=== PATIENT | male | born 1960 | race Caucasian/White ===

== ENCOUNTER 2018-09-04 13:07 | Emergency (ER) | payer OTHER ==
[2018-09-04 15:00] LABS: ADD MAN DIFF? NO
[2018-09-04] MEDS: KETOROLAC 30 MG INJ IV (15:02)
[2018-09-04 15:05] LABS: WHITE BLOOD COUNT 10.2 10^3/ul (4.8-10.8)
[2018-09-04 15:05] LABS: BASOPHILS % 0.4 % (0.0-2.0); EOSINOPHILS # 0.2 10^3/ul (0.0-0.5); EOSINOPHILS % 2.1 % (0.0-7.0); HEMATOCRIT 46.3 % (42.0-52.0); HEMOGLOBIN 15.1 g/dl (14.0-18.0); LYMPHOCYTES # 2.2 10^3/ul (0.8-2.9); LYMPHOCYTES % 21.9 % (15.0-51.0); MEAN CORPUSCULAR HEMOGLOBIN 29.8 pg (29.0-33.0); MEAN CORPUSCULAR HGB CONC 32.6 g/dl (32.0-37.0); MEAN CORPUSCULAR VOLUME 91.3 fl (82.0-101.0); MEAN PLATELET VOLUME 9.7 fl (7.4-10.4); MONOCYTES % 9.8 % (0.0-11.0); NEUTROPHIL # 6.7 10^3/ul (1.6-7.5); NEUTROPHILS % 65.5 % (39.0-77.0); PLATELET COUNT 201 10^3/UL (140-415); RED BLOOD COUNT 5.07 10^6/ul (4.70-6.10); RED CELL DISTRIBUTION WIDTH 12.7 % (11.5-14.5)
[2018-09-04 15:11] LABS: ADD UMIC NO; UR ASCORBIC ACID NEGATIVE (NEGATIVE); UR BILIRUBIN (Dip) NEGATIVE (NEGATIVE); UR BLOOD (Dip) NEGATIVE (NEGATIVE); UR CLARITY CLEAR (CLEAR); UR COLOR YELLOW (YELLOW); UR GLUCOSE (Dip) NEGATIVE (NEGATIVE); UR KETONES (Dip) NEGATIVE (NEGATIVE); UR LEUKOCYTE ESTERASE (Dip) NEGATIVE Leu/ul (NEGATIVE); UR NITRITE (Dip) NEGATIVE (NEGATIVE); UR SPECIFIC GRAVITY (Dip) 1.023 (1.003-1.030); UR TOTAL PROTEIN (Dip) NEGATIVE (NEGATIVE); UR UROBILINOGEN (Dip) NEGATIVE (NEGATIVE)
[2018-09-04 15:28] LABS: ALANINE AMINOTRANSFERASE 45 IU/L (13-69); ALBUMIN 4.7 g/dl (3.3-4.9); ALKALINE PHOSPHATASE 95 IU/L (42-121); ANION GAP 12 (5-13); ASPARTATE AMINO TRANSFERASE 37 IU/L (15-46); BILIRUBIN,INDIRECT 0.3 mg/dl (0-1.1); BILIRUBIN,TOTAL 0.3 mg/dl (0.2-1.3); BLOOD UREA NITROGEN 17 mg/dl (7-20); CALCIUM 9.6 mg/dl (8.4-10.2); CARBON DIOXIDE 26 mmol/L (21-31); CHLORIDE 103 mmol/L (97-110); CREATININE 0.77 mg/dl (0.61-1.24); Estimated GFR > 60 mL/min (>60); GLUCOSE 110 mg/dl (70-220); LIPASE 58 U/L (23-300); POTASSIUM 4.3 mmol/L (3.5-5.1); SODIUM 141 mmol/L (135-144); TOTAL PROTEIN 8.6 g/dl (6.1-8.1)
[2018-09-04 15:39] LABS: TROPONIN-I < 0.012 ng/ml (0.000-0.120)
== END 2018-09-04 16:26 | disposition home or self-care (01) ==
LOC: E/R 13:07
DX: R10.84 Generalized abdominal pain (principal)
CPT/HCPCS: 36415; 80053; 81003; 83690; 84484; 85025; 87400; 93005; 96374; 99284-25

== ENCOUNTER 2018-09-09 09:41 | Emergency (ER) | payer OTHER ==
[2018-09-09] MEDS: LIDOCAINE 1% (MDV) 10 ML INJ INJ (10:33)
[2018-09-09] MEDS: LIDOCAINE 1% (MDV) 20 ML INJ INJ (10:56)
== END 2018-09-09 11:24 | disposition home or self-care (01) ==
LOC: FTE 09:41
DX: K61.0 Anal abscess (principal)
CPT/HCPCS: 46050; 99282-25

== ENCOUNTER 2018-11-06 17:29 | Emergency (ER) | payer OTHER | END 2018-11-06 20:54 | disposition home or self-care (01) | LOC: FTE 17:29 | DX: K61.1 Rectal abscess (principal) | CPT/HCPCS: 99283; Z7502 ==

== ENCOUNTER 2018-11-08 18:19 | Emergency (ER) | payer OTHER | END 2018-11-08 19:54 | disposition home or self-care (01) | LOC: FTE 18:19 | DX: L02.31 Cutaneous abscess of buttock (principal) | CPT/HCPCS: 99283; Z7502 ==